=== PATIENT | female | born 1955 | race Caucasian/White ===

== ENCOUNTER 2016-12-04 05:31 | Emergency (ER) | payer OTHER ==
--- NOTE | ~2016-12-04 | EKG ---
PATIENT: RIA SHRESTHA UNIT #: [id number] Ventricular Rate: 91 BPM Atrial Rate: 91 BPM P-R Interval: 186 ms QRS Duration: 96 ms Q-T Interval: 372 ms QTC Calculation(Bezet): 457 ms P Avon: -6 degrees Calculated R Avon: 59 degrees Calculated T Avon: 27 degrees Diagnosis Line: Normal sinus rhythm Diagnosis Line: Normal ECG Diagnosis Line: No previous ECGs available Diagnosis Line: Confirmed by LINDA WEINSTEIN MD ([id number]) on Diagnosis Line: 12/04/2016 3:27:15 PM INTERPRETING MD: CORINNA ASHBY
--- NOTE | ~2016-12-04 | CT2 ---
[facility] A Service of [facility] RADIOLOGY TEXT RESULTS PATIENT: RIA SHRESTHA LOCATION: [place] : 57 UNIT #: [id number] AGE: [address]: tIa Hua MD SEX: F ORDER DR: [id number] [facility] [address] [place], [place] [address] [id number] E MR#: [id number] Acc #: [id number] NAME: RIA SHRESTHA : 1955 SEX: F STUDY DATE/TIME: 12/04/2016 7:47 UNIT: [facility] ROOM: STUDY DESCRIPTION: CT Abd and Pelv W Cont Attending Physician: Ita Hua M.D. Ordering Physician: Archana Coello M.D. [facility] REPORT This report is preliminary unless electronic signature is present EXAM CT of the abdomen and pelvis with IV contrast, 12/04/[address] abdomen and pelvis with IV contrast with multiplanar reformats. COMPARISON 04/14/2013 HISTORY Abdominal pain and cramping for 6 hours. Prior history of colitis. TECHNIQUE This CT exam was performed with one or more of the following radiation dose reduction techniques: automatic exposure control, adjustment of mA and/or kV according to patient size, and iterative reconstruction. FINDINGS The lung bases are unremarkable. ABDOMEN: The liver and gallbladder are unremarkable. The spleen and pancreas are normal. The kidneys and adrenal glands are within normal limits and the aorta is normal in caliber. The distal ileum is abnormally thickened and there is surrounding fatty proliferation. There is modest dilatation of the immediately more proximal small bowel but overall no evidence of obstruction. The appendix is normal. There is some sigmoid and left colonic diverticulosis but no evidence of diverticulitis. There is no abscess or free air. [facility] A Service of [facility] RADIOLOGY TEXT RESULTS PATIENT: RIA SHRESTHA LOCATION: [place] : 57 UNIT #: [id number] AGE: [address]: Ita Hua MD SEX: F ORDER DR: IMPRESSION 1. Abnormally thickened terminal ileum with some surrounding fatty proliferation and a tiny amount of ascites. The findings suggests Crohn disease with probable mild acute exacerbation but no abscess or obstruction. There is a tiny amount of free fluid in the pelvis. 2. Normal appendix. Diverticulitis without diverticulitis. Otherwise negative exam. Dictated by... Lazaro Oliveira M.D. THIS IS AN ELECTRONICALLY VERIFIED REPORT Lazaro Oliveira M.D. at 12/04/2016 5:02 PM MIQUEL/tamar TD: 12/04/2016 09:37 JOB #: [id number] MEDICAL IMAGING REPORT COPY
[~2016-12-04 05:31] MED LIST: CIPRO750 MG PO; CYMBALTA; FISH OIL 1,0001 CAP; FLAGYL PO; HYDROCODON-ACE1 EAC7 PO; LEVAQUIN750 M1 PO; MAG-OXIDE400 MG; METRONIDAZOLE PO; MICRO-K; OMEPRAZOLE20 M1 PO; OYSTER CALCIUM500 MG; PENTASA250 MG PO; PHENERGAN25 M1 PO; VIT B-12; VITAMIN B-6; [UNRECOGNIZED DRUG - OTHER]
[2016-12-04 06:01] LABS: BASOPHIL% 0.3 % (0-2.5); EOSINOPHIL% 0.3 % (0.0-7.0); HEMATOCRIT 44.6 % (35.0-45.0); HEMOGLOBIN 15.4 gm/dL (12.0-16.0); LYMPHOCYTE# 2.4 X10e3 (1.0-3.5); LYMPHOCYTE% 24.3 % (17.0-45.0); MEAN CELL VOLUME 91.4 FL (83-96); MEAN CORPUSCULAR HEMOGLOBIN 31.6 PG (28-34); MEAN CORPUSCULAR HGB CONC 34.5 g/dL (30-36); MEAN PLATELET VOLUME 8.5 FL (6.5-11.5); MONOCYTE# 0.6 X10e3 (0-1.0); NEUTROPHIL# 6.8 X10e3 (1.5-7.1); NEUTROPHIL% 69.1 % (40-75); PLATELET COUNT 233 X10e3 (140-420); RED BLOOD COUNT 4.88 X10e (3.90-5.30); RED CELL DISTRIBUTION WIDTH 12.5 % (11.0-15.5); WHITE BLOOD COUNT 9.9 X10e3 (4.0-10.5)
[2016-12-04 06:08] LABS: DIFF IND NO
[2016-12-04 06:18] LABS: POC - CKMB <1.0 ng/mL (0.0-7.9); POC - TROPONIN <0.05 ng/mL (<=0.05)
[2016-12-04 06:45] LABS: ALBUMIN SERUM 3.8 g/dL (3.5-5.0); ALKALINE PHOSPHATASE 34 U/L (32-92); ALT (SGPT) 20 U/L (10-40); AMYLASE 26 U/L (0-46); AST (SGOT) 17 U/L (10-42); BILIRUBIN, DIRECT 0.1 mg/dL (0.0-0.2); BILIRUBIN,INDIRECT 0.5 mg/dL (0.0-0.9); BILIRUBIN,TOTAL 0.6 mg/dL (0.2-2.0); BLOOD UREA NITROGEN 6 mg/dL (9-23); BUN/CREATININE RATIO 8.57; CALCIUM SERUM 9.5 mg/dL (8.4-10.2); CARBON DIOXIDE 25 mmol/L (22-31); CHLORIDE 103 mmol/L (100-111); CREATININE SERUM 0.7 mg/dL (0.6-1.4); GLOM FILT RATE Estimated ABOVE60 mL/min (>60); GLUCOSE FASTING 111 mg/dL (70-110); LIPASE 22 U/L (22-51); POTASSIUM 3.9 mmol/L (3.5-5.1); SODIUM 137 mmol/L (135-145)
[2016-12-04 07:22] LABS: URINE SOURCE CLEAN CATCH
[2016-12-04 07:28] LABS: URINE APPEARANCE CLEAR; URINE BILIRUBIN NEG (NEG); URINE BLOOD NEG (NEG); URINE COLOR YELLOW; URINE GLUCOSE NEG (NEG); URINE KETONE NEG (NEG); URINE LEUKOCYTE ESTERASE 1+ (NEG); URINE NITRATE NEG (NEG); URINE PH 5.5 (5-8); URINE PROTEIN NEG (NEG); URINE SPECIFIC GRAVITY 1.011 (1.003-1.035); URINE UROBILINOGEN 0.2 MG/DL (NEG)
[2016-12-04 07:31] LABS: CULTURE INDICATED? YES; URBCS1 AUWI 0-2 /[HPF] (0-2); URINE BACTERIA AUWI 1+ (NEGATIVE); URINE SQUAMOUS EPITHELIAL CELL FEW /[HPF]
== END 2016-12-04 09:00 | disposition home or self-care (01) ==
LOC: CED 05:31
PROVIDERS: Student in an Organized Health Care Education/Training Program
DX: K52.9 Noninfective gastroenteritis and colitis, unspecified (principal); N39.0 Urinary tract infection, site not specified; K21.9 Gastro-esophageal reflux disease without esophagitis; F17.200 Nicotine dependence, unspecified, uncomplicated; Z87.442 Personal history of urinary calculi; Z98.890 Other specified postprocedural states
CPT/HCPCS: 36415; 74177; 80048; 80076; 81003; 82150; 82553; 83690; 84484; 85025; 87086; 93005; 96361; 96374; 96375; 99284; C9113; J2270; J2405; Q9967

== ENCOUNTER 2017-02-20 02:55 | Emergency (ER) | payer OTHER ==
[2017-02-20 03:55] LABS: BASOPHIL% 0.4 % (0-2.5); EOSINOPHIL# 0.1 X10e3 (0-0.7); HEMATOCRIT 41.6 % (35.0-45.0); HEMOGLOBIN 14.2 gm/dL (12.0-16.0); LYMPHOCYTE# 3.3 X10e3 (1.0-3.5); LYMPHOCYTE% 34.8 % (17.0-45.0); MEAN CELL VOLUME 93.5 FL (83-96); MEAN CORPUSCULAR HEMOGLOBIN 31.8 PG (28-34); MEAN PLATELET VOLUME 8.2 FL (6.5-11.5); MONOCYTE# 0.8 X10e3 (0-1.0); MONOCYTE% 8.1 % (3.0-12.0); NEUTROPHIL# 5.2 X10e3 (1.5-7.1); NEUTROPHIL% 55.7 % (40-75); PLATELET COUNT 207 X10e3 (140-420); RED BLOOD COUNT 4.45 X10e (3.90-5.30); RED CELL DISTRIBUTION WIDTH 12.8 % (11.0-15.5); WHITE BLOOD COUNT 9.4 X10e3 (4.0-10.5)
[2017-02-20 04:00] LABS: DIFF IND NO
[2017-02-20 04:27] LABS: ALBUMIN SERUM 3.9 g/dL (3.5-5.0); ALKALINE PHOSPHATASE 42 U/L (32-92); ALT (SGPT) 16 U/L (10-40); AMYLASE 26 U/L (0-46); AST (SGOT) 18 U/L (10-42); BILIRUBIN, DIRECT 0.1 mg/dL (0.0-0.2); BILIRUBIN,INDIRECT 0.2 mg/dL (0.0-0.9); BILIRUBIN,TOTAL 0.3 mg/dL (0.2-2.0); BLOOD UREA NITROGEN <5 mg/dL (9-23); BUN/CREATININE RATIO 6.25; CALCIUM SERUM 9.1 mg/dL (8.4-10.2); CARBON DIOXIDE 26 mmol/L (22-31); CHLORIDE 105 mmol/L (100-111); CREATININE SERUM 0.8 mg/dL (0.6-1.4); GLOM FILT RATE Estimated 80.2 mL/min (>60); GLUCOSE FASTING 100 mg/dL (70-110); LIPASE 30 U/L (22-51); POTASSIUM 3.6 mmol/L (3.5-5.1); SODIUM 138 mmol/L (135-145)
[2017-02-20 05:49] LABS: URINE SOURCE CLEAN CATCH
[2017-02-20 05:55] LABS: URINE APPEARANCE CLEAR; URINE BILIRUBIN NEG (NEG); URINE BLOOD NEG (NEG); URINE COLOR YELLOW; URINE GLUCOSE NEG (NEG); URINE KETONE NEG (NEG); URINE LEUKOCYTE ESTERASE NEG (NEG); URINE NITRATE NEG (NEG); URINE PH 5.5 (5-8); URINE PROTEIN NEG (NEG); URINE SPECIFIC GRAVITY 1.005 (1.003-1.035); URINE UROBILINOGEN 0.2 MG/DL (NEG)
[2017-02-20 05:59] LABS: CULTURE INDICATED? NO
== END 2017-02-20 06:08 | disposition home or self-care (01) ==
LOC: CED 02:55
PROVIDERS: Emergency Medicine
DX: K50.90 Crohn's disease, unspecified, without complications (principal); F17.200 Nicotine dependence, unspecified, uncomplicated
CPT/HCPCS: 36415; 80048; 80076; 81003; 82150; 83690; 85025; 96361; 96374; 96375; 99284; J2270; J2550

== ENCOUNTER 2017-03-10 09:50 | Emergency (ER) | payer OTHER | END 2017-03-10 10:15 | disposition home or self-care (01) | LOC: CED 09:50 → CFTX 09:50 → CED 09:55 | DX: T21.22XA Burn of second degree of abdominal wall, initial encounter (principal); T31.0 Burns involving less than 10% of body surface; F17.200 Nicotine dependence, unspecified, uncomplicated; X08.8XXA Exposure to other specified smoke, fire and flames, initial encounter; Y92.9 Unspecified place or not applicable | CPT/HCPCS: 16020; 99283 ==

== ENCOUNTER 2017-03-13 02:43 | Emergency (ER) | payer OTHER | END 2017-03-13 04:50 | disposition home or self-care (01) | LOC: CED 02:43 | DX: T65.891A Toxic effect of other specified substances, accidental (unintentional), initial encounter (principal); T21.52XA Corrosion of first degree of abdominal wall, initial encounter; F17.210 Nicotine dependence, cigarettes, uncomplicated | CPT/HCPCS: 99283 ==

== ENCOUNTER 2017-03-25 23:40 | Emergency (ER) | payer OTHER | END 2017-03-26 00:15 | disposition home or self-care (01) | LOC: CED 23:40 | DX: K02.9 Dental caries, unspecified (principal); I10 Essential (primary) hypertension; F17.200 Nicotine dependence, unspecified, uncomplicated | CPT/HCPCS: 99282 ==

== ENCOUNTER 2017-05-11 11:00 | Emergency (ER) | payer OTHER ==
[~2017-05-11] VITALS: Ht 165.1 cm; Wt 79.4 kg
--- NOTE | ~2017-05-11 | CR72 ---
[facility] A Service of [facility] & [facility] RADIOLOGY TEXT RESULTS PATIENT: RIA SHRESTHA LOCATION: [facility] : [birth year] UNIT #: [id number] AGE: [address]: Cristo Mckenzie MD SEX: F ORDER DR: [id number] [facility] [address] [place], [place] [address] [id number] E MR#: [id number] Acc #: [id number] NAME: RIA SHRESTHA : 1955 SEX: F STUDY DATE/TIME: 05/11/2017 12:01 UNIT: [facility] ROOM: STUDY DESCRIPTION: CR Chest Single View Portable Attending Physician: Cristo Mckenzie M.D. Ordering Physician: Cristo Mckenzie M.D. Primary Care Physician: [facility] MEDICAL IMAGING REPORT This report is preliminary unless electronic signature is present EXAM Portable chest radiograph. INDICATIONS Cough, chest pain and sinus congestion for a day. FINDINGS Comparison made to a prior exam from June 12, 2015. Heart size is within normal limits for portable technique. Patient does have some prominence of the perihilar interstitium which I think could reflect some changes of chronic bronchitis. There is some bibasilar atelectasis, and overall lung volumes appear somewhat diminished. No pneumothorax, pleural effusion or acute alveolar infiltrate is seen. Dictated by... Tasia Adrian M.D. THIS IS AN ELECTRONICALLY VERIFIED REPORT Tasia Adrian M.D. at 05/11/2017 4:56 PM AFF/jt TD: 05/11/2017 16:20 JOB #: [id number] MEDICAL IMAGING REPORT Page 1 of 1 COPY
[2017-05-11 12:16] LABS: BASOPHIL% 0.7 % (0-2.5); EOSINOPHIL% 0.8 % (0.0-7.0); HEMATOCRIT 40.5 % (35.0-45.0); HEMOGLOBIN 13.4 gm/dL (12.0-16.0); LYMPHOCYTE# 1.6 X10e3 (1.0-3.5); LYMPHOCYTE% 26.8 % (17.0-45.0); MEAN CORPUSCULAR HEMOGLOBIN 31.2 PG (28-34); MEAN CORPUSCULAR HGB CONC 33.2 g/dL (30-36); MEAN PLATELET VOLUME 7.9 FL (6.5-11.5); MONOCYTE# 0.5 X10e3 (0-1.0); MONOCYTE% 8.7 % (3.0-12.0); NEUTROPHIL# 3.7 X10e3 (1.5-7.1); PLATELET COUNT 206 X10e3 (140-420); RED BLOOD COUNT 4.31 X10e (3.90-5.30); RED CELL DISTRIBUTION WIDTH 12.9 % (11.0-15.5); WHITE BLOOD COUNT 5.9 X10e3 (4.0-10.5)
[2017-05-11 12:17] LABS: DIFF IND NO
[2017-05-11 12:44] LABS: ALBUMIN SERUM 3.7 g/dL (3.5-5.0); BILIRUBIN, DIRECT 0.1 mg/dL (0.0-0.2); BILIRUBIN,INDIRECT 0.3 mg/dL (0.0-0.9); BILIRUBIN,TOTAL 0.4 mg/dL (0.2-2.0); BUN/CREATININE RATIO 11.42; CALCIUM SERUM 8.9 mg/dL (8.4-10.2); CREATININE SERUM 0.7 mg/dL (0.6-1.4); GLOM FILT RATE Estimated 94.2 mL/min (>60); POTASSIUM 3.9 mmol/L (3.5-5.1); PROTEIN TOTAL SERUM 6.8 g/dL (6.0-8.3)
== END 2017-05-11 13:21 | disposition home or self-care (01) ==
LOC: CFTX 11:00 → CED 11:00
PROVIDERS: Emergency Medicine
DX: J06.9 Acute upper respiratory infection, unspecified (principal); F17.200 Nicotine dependence, unspecified, uncomplicated
CPT/HCPCS: 36415; 71010; 80048; 80076; 85025; 96372; 99284; J1885

== ENCOUNTER 2017-06-07 09:44 | Emergency (ER) | payer OTHER ==
[~2017-06-07] VITALS: Ht 165.1 cm; Wt 79.4 kg
[2017-06-07 10:56] LABS: URINE SOURCE CLEAN CATCH
[2017-06-07 11:10] LABS: URINE APPEARANCE CLOUDY; URINE BLOOD NEG (NEG); URINE COLOR DK YELLOW; URINE GLUCOSE NEG (NEG); URINE KETONE TRACE (NEG); URINE LEUKOCYTE ESTERASE 2+ (NEG); URINE NITRATE NEG (NEG); URINE PROTEIN TRACE (NEG); URINE SPECIFIC GRAVITY 1.026 (1.003-1.035)
[2017-06-07 11:13] LABS: CULTURE INDICATED? YES; URINE BACTERIA AUWI 2+ (NEGATIVE); URINE SQUAMOUS EPITHELIAL CELL FEW /[HPF]
[2017-06-07 11:30] LABS: BASOPHIL% 0.3 % (0-2.5); EOSINOPHIL# 0.1 X10e3 (0-0.7); EOSINOPHIL% 0.7 % (0.0-7.0); HEMATOCRIT 43.1 % (35.0-45.0); HEMOGLOBIN 14.7 gm/dL (12.0-16.0); LYMPHOCYTE# 2.8 X10e3 (1.0-3.5); LYMPHOCYTE% 29.5 % (17.0-45.0); MEAN CELL VOLUME 92.9 FL (83-96); MEAN CORPUSCULAR HEMOGLOBIN 31.6 PG (28-34); MONOCYTE# 0.7 X10e3 (0-1.0); MONOCYTE% 7.4 % (3.0-12.0); NEUTROPHIL% 62.1 % (40-75); PLATELET COUNT 240 X10e3 (140-420); RED BLOOD COUNT 4.64 X10e (3.90-5.30); RED CELL DISTRIBUTION WIDTH 12.9 % (11.0-15.5); WHITE BLOOD COUNT 9.6 X10e3 (4.0-10.5)
[2017-06-07 11:33] LABS: DIFF IND NO
[2017-06-07 11:36] LABS: URINE BILIRUBIN NEG (NEG)
[2017-06-07 11:39] LABS: URINE CRYSTALS CALCIUM OXALATE /[HPF]; URINE MUCUS PRESENT
[2017-06-07 12:03] LABS: BILIRUBIN, DIRECT 0.1 mg/dL (0.0-0.2); BILIRUBIN,TOTAL 1.1 mg/dL (0.2-2.0); BUN/CREATININE RATIO 11.42; CALCIUM SERUM 9.3 mg/dL (8.4-10.2); CREATININE SERUM 0.7 mg/dL (0.6-1.4); GLOM FILT RATE Estimated 93.5 mL/min (>60); POTASSIUM 3.7 mmol/L (3.5-5.1); PROTEIN TOTAL SERUM 7.4 g/dL (6.0-8.3)
== END 2017-06-07 13:50 | disposition home or self-care (01) ==
LOC: CED 09:44
PROVIDERS: Emergency Medicine
DX: R10.84 Generalized abdominal pain (principal); Z87.442 Personal history of urinary calculi; I10 Essential (primary) hypertension; F17.200 Nicotine dependence, unspecified, uncomplicated
CPT/HCPCS: 36415; 80048; 80076; 81003; 82150; 83690; 84703; 85025; 87086; 96361; 96374; 96375; 99284; J0696; J2270; J2405

== ENCOUNTER 2017-06-11 00:16 | Emergency (ER) | payer OTHER ==
[~2017-06-11] VITALS: Ht 165.1 cm; Wt 85.7 kg
--- NOTE | ~2017-06-11 | CT4 ---
[facility] A Service of [facility] & [facility] RADIOLOGY TEXT RESULTS PATIENT: RIA SHRESTHA LOCATION: [facility] : 57 UNIT #: [id number] AGE: [address]: Larissa Cuevas MD SEX: F ORDER DR: [id number] [facility] [address] [place], [place] [address] [id number] E MR#: [id number] Acc #: [id number] NAME: RIA SHRESTHA : 1955 SEX: F STUDY DATE/TIME: 06/11/2017 2:00 UNIT: [facility] ROOM: STUDY DESCRIPTION: CT Abd and Pelv Wo Cont Attending Physician: Larissa Cuevas M.D. Ordering Physician: Larissa Cuevas M.D. Primary Care Physician: [facility] MEDICAL IMAGING REPORT This report is preliminary unless electronic signature is present EXAM CT abdomen and pelvis, noncontrast, kidney stone protocol, 06/11/2017 HISTORY 62-year-old female in the ED complaining of 1-day history of left flank pain. Recent urinary tract infection. She notes nausea, vomiting and diarrhea over about 6 days. She has a known diagnosis of inflammatory bowel disease (reportedly ulcerative colitis) The CT exam was performed with one or more of the following radiation dose reduction techniques: automatic exposure control, adjustment of mA and/or kV according to patient size, and iterative reconstruction. TECHNIQUE CT examination of the abdomen and pelvis was performed without oral or IV contrast using kidney stone protocol, as requested. Lack of contrast significantly limits evaluation of the GI tract in this patient. Abdomen Findings Both kidneys, both ureters and the urinary bladder are normal in noncontrast appearance. No visible nephrolithiasis or evidence of urinary obstruction. Moderate long segment inflammation of the terminal ileum and contiguous distal ileum extending for a length of at least 30 cm. No evidence of active colon inflammation. The findings are highly suggestive of active Crohn disease. No evidence of abscess, bowel obstruction or additional complicating feature. Moderate sigmoid and descending colonic diverticulosis. Normal appendix. Liver, pancreas and spleen are within normal limits. No gallbladder distension or bile duct dilatation. Normal-caliber abdominal aorta. STS. [facility] A Service of [facility] & [facility] RADIOLOGY TEXT RESULTS PATIENT: RIA SHRESTHA LOCATION: [facility] : 57 UNIT #: [id number] AGE: [address]: Larissa Cuevas MD SEX: F ORDER DR: Pelvis Findings Uterus, ovaries, urinary bladder and rectum are within normal limits. No inguinal hernia. Limited lung base images show no active disease in the lower chest. IMPRESSION 1. Moderate segmental inflammation involving the distal 30 cm of the ileum including the terminal ileum as noted above. Remaining segments of small bowel and colon show no evidence of active inflammation. The appearance and distribution is highly suggestive of active Crohn disease. The extent and severity of the ileal inflammation appears unchanged since the previous study of 12/04/2016. No evidence of abscess, bowel obstruction or additional complicating feature. The examination is limited without oral or IV contrast administration. 2. Mild to moderate diverticulosis involving the left hemicolon. Normal appendix. 3. No visible nephrolithiasis or evidence of urinary obstruction as questioned clinically. Dictated by... Clinton Triana M.D. THIS IS AN ELECTRONICALLY VERIFIED REPORT Clinton Triana M.D. at 06/12/2017 2:44 AM ALISHA/aleksandar TD: 06/11/2017 13:03 JOB #: [id number] MEDICAL IMAGING REPORT Page 1 of 1 COPY
[2017-06-11 00:56] LABS: URINE SOURCE CLEAN CATCH
[2017-06-11 01:01] LABS: URINE APPEARANCE CLEAR; URINE BILIRUBIN NEG (NEG); URINE BLOOD NEG (NEG); URINE COLOR YELLOW; URINE GLUCOSE NEG (NEG); URINE KETONE NEG (NEG); URINE LEUKOCYTE ESTERASE TRACE (NEG); URINE NITRATE NEG (NEG); URINE PROTEIN NEG (NEG); URINE SPECIFIC GRAVITY 1.007 (1.003-1.035); URINE UROBILINOGEN 0.2 MG/DL (NEG)
[2017-06-11 01:03] LABS: URBCS1 AUWI 0-2 /[HPF] (0-2); URINE BACTERIA AUWI NEG (NEGATIVE); URINE SQUAMOUS EPITHELIAL CELL OCC /[HPF]
[2017-06-11 01:09] LABS: CULTURE INDICATED? NO
== END 2017-06-11 03:25 | disposition home or self-care (01) ==
LOC: CED 00:16
DX: R10.9 Unspecified abdominal pain (principal); R19.7 Diarrhea, unspecified; R11.0 Nausea
CPT/HCPCS: 74176; 81003; 99284